=== PATIENT | female | born 1980 | race Caucasian/White ===

== ENCOUNTER 2018-07-08 11:00 | Day surgery (SDC) | payer OTHER ==
[~2018-07-08] VITALS: Ht 172.7 cm; Wt 55.6 kg
[2018-07-08] MEDS ORDERED: PSEU120ER (11:52)
--- NOTE | 2018-07-08 12:21 | NUR ---
07/08/18 1221 Christin Moody PREOP TEACHING COMPLETED AT THIS TIME. LULU EMERY AT BEDSIDE. WARM BLANKET PROVIDED.
== END 2018-07-08 14:08 | disposition home or self-care (01) ==
LOC: ORSCSDS 11:00
PROVIDERS: Internal Medicine Gastroenterology
PROC: 0DBE8ZX Excision of Large Intestine, Via Natural or Artificial Opening Endoscopic, Diagnostic (ICD-10-PCS; principal; 2018-07-08 12:30)
DX: K92.1 Melena (principal); R19.7 Diarrhea, unspecified; R10.84 Generalized abdominal pain; K57.30 Diverticulosis of large intestine without perforation or abscess without bleeding
CPT/HCPCS: 88305; J2250; J7120

== ENCOUNTER 2018-10-23 15:14 | Emergency (ER) | payer OTHER ==
[~2018-10-23] VITALS: Ht 162.6 cm; Wt 61.2 kg
[~2018-10-23 15:14] MED LIST: PSEU120ER
--- NOTE | 2018-10-23 16:44 | NUR ---
Responded to trauma. Present when pt arrived. Spouse arrived quickly followed by numerous family. Provided continuous updates, calm presence, prayer and certified alcohol drug counselor. Family understandably hysterical/tearful. Spouse selected [facility] for arrangements.
== END 2018-10-23 15:47 ==
LOC: ER 15:29
DX: I46.9 Cardiac arrest, cause unspecified (principal); V89.2XXA Person injured in unspecified motor-vehicle accident, traffic, initial encounter
CPT/HCPCS: 29505; 31500; 32551; 36430; 36556; 71045; 86850; 86900; 86901; 86923; 94002; 96374-59; 96375-59; 99291-25; C1751; G0390; J0330; J0461; J0690; J7030; J7040; L0160; P9016